=== PATIENT | female | born 1990 | race Caucasian/White ===

== ENCOUNTER 2024-06-13 13:31 | Emergency (ER) | payer OTHER ==
[~2024-06-13] VITALS: Ht 160 cm; Wt 69.1 kg
[2024-06-13 13:34] VITALS: TEMP 97.9
[2024-06-13] MEDS ORDERED: IBUP-1554 PO (14:16)
[2024-06-13] MEDS ORDERED: ACET-66 PO (14:16)
[2024-06-13] MEDS ORDERED: PENI500T2 PO (14:16)
[2024-06-13] MEDS: IBUPROFEN 600 MG TABLET PO ONE (14:43)
[2024-06-13] MEDS: ACETAMINOPHEN 500 MG TABLET PO ONE (14:43)
[2024-06-13 14:56] VITALS: BP 121/75; PULSE 88; RESP 18; O2SAT 100
== END 2024-06-13 14:57 | disposition home or self-care (01) ==
LOC: EMS 13:31
DX: K05.10 Chronic gingivitis, plaque induced (principal); Z3A.22 22 weeks gestation of pregnancy; Z90.89 Acquired absence of other organs
CPT/HCPCS: 99283

== ENCOUNTER 2024-06-16 23:32 | Emergency (ER) | payer OTHER ==
[~2024-06-16] VITALS: Ht 160 cm; Wt 69.1 kg
[~2024-06-16 23:32] MED LIST: ACET-66 PO; IBUP-1554 PO; PENI500T2 PO
[2024-06-16 23:37] VITALS: BP 133/81; PULSE 96; RESP 18; TEMP 98.1; O2SAT 99
== END 2024-06-17 02:16 | disposition left against medical advice (07) ==
LOC: EMS 23:32
DX: H92.01 Otalgia, right ear (principal); Z53.21 Procedure and treatment not carried out due to patient leaving prior to being seen by health care provider